=== PATIENT | male | born 1960 | race Caucasian/White ===

== ENCOUNTER 2020-06-05 00:23 | Outpatient (CLI) | payer BC, SELFPAY ==
[2020-06-05 20:04] LABS: SARS-CoV-2 RNA PCR Negative
== END 2020-06-05 00:24 | disposition home or self-care (01) ==
LOC: ANHCOVIDDT 00:24
PROVIDERS: PCP Internal Medicine; Visit Provider Internal Medicine Gastroenterology
DX: Z01.812 Encounter for preprocedural laboratory examination (principal); Z11.59 Encounter for screening for other viral diseases
CPT/HCPCS: 87635; C9803; U0003

== ENCOUNTER 2020-06-07 00:58 | Day surgery (SDC) | payer BC, SELFPAY ==
[2020-05-30 11:47] VITALS: BMI 27.5
--- NOTE | 2020-06-07 09:22 | P.PNAN_ITS ---
Anes - Initial Pre Proc Eval Procedure: Operation Date: 06/07/20 09:30 Proposed Procedures p Screening Colonoscopy - Checo Zaragoza MD Date/Time: 06/07/20 09:22 Surgeon: Checo Zaragoza MD Pre Op Diagnosis: Neoplasm Screening Patient Data Age: 59 Gender: M Height: 6 ft 3 in Weight: 100 kg Allergies Allergy/AdvReac Type Severity Reaction Status Date / Time No Known Allergies Allergy Verified 06/07/20 09:15 Home Medications Medication Instructions Recorded Confirmed Type No Home Medications 05/30/20 06/07/20 History Patient hx anesthesia problems: none Family hx anesthesia problems: none [facility] Past Medical History Medical History (Updated 06/07/20 @ 09:17 by Frank Nguyen MD) Healthy adult Social History Social History Years smoked: 10 Smoking status: Current some day smoker Tobacco type: cigars Alcohol intake: current Drinks per week: 12 Substance use: never Living arrangements: with family Spiritual care concerns: No Anes - Eval Final PreProcedure Day of Procedure 06/07/20 09:22 Patient weight: normal Heart: regular rate and rhythm Lungs: clear to auscultation Airway: Mallampati scale class II Neurological: alert and oriented Last oral intake: >/= 8 hours ASA classification: II Emergent: no Anesthetic plan: proceed Anesthesia type and monitoring: general GIVS and standard monitoring Informed Consent: The patient's anesthetic plan and its attendant risks and benefits were discussed with the patient/family/POA. Questions were solicited and answers provided to the satisfaction of the patient/family/POA.
[2020-06-07] MEDS: LACTATED RINGERS 1,000 ML 150 ML IV CONT (09:26)
[2020-06-07 09:28] VITALS: BP 148/95; PULSE 66; RESP 18; TEMP 36.5; O2SAT 100; BMI 27.3
--- NOTE | 2020-06-07 09:37 | P.CONGI_ITS ---
Assessment and Plan Assessment and plan (1) Encounter for screening colonoscopy: Code(s): Z12.11 - Encounter for screening for malignant neoplasm of colon Status: Acute Assessment and Plan: Patient has been in good health last colonoscopy 10 years ago was unremarkable. Plan is for screening colonoscopy at this time. GI Consult Note Consult date/time: 06/07/20 09:37 HPI: Param Oliveros is a 59 year old male seen in evaluation at the request of Dr Hyatt. Patient presents for neoplasia screening. His current weight appetite bowel movements are normal. He denies abdominal pain. On a fluid few instances is notice bright red blood per rectum with wiping. He states his last col onoscopy 10 years ago that was unremarkable. Family history is noncontributory. Patient currently has been in good health is on no medications. Review of Systems Review of Systems: All systems reviewed & are unremarkable except as noted in HPI and below PMFSH Past Medical History Medical History (Updated 06/07/20 @ 09:38 by Checo Zaragoza MD) Healthy adult Social History Social History Years smoked: 10 Smoking status: Current some day smoker Tobacco type: cigars Alcohol intake: current Drinks per week: 12 Substance use: never Living arrangements: with family Spiritual care concerns: No Meds Home Medications and Allergies Home Medications Medication Instructions Recorded Confirmed Type No Home Medications 05/30/20 06/07/20 History Allergies Allergy/AdvReac Type Severity Reaction Status Date / Time No Known Allergies Allergy Verified 06/07/20 09:15 Vital Signs Vital Signs - 24 hr 06/07/20 09:28 Temperature 97.7 F Pulse Rate 66 Respiratory Rate 18 Blood Pressure 148/95 H Pulse Oximetry 100 Exam Narrative: Exam Narrative: Physical exam reveals patient to be alert. Vital signs stable. HEENT exam unremarkable. Lungs are clear to auscultation and percussion. Heart is without murmur or extra sounds. Abdominal exam bowel sounds are present soft nontender with no hepatosplenomegaly. Digital rectal exam is normal.
[2020-06-07 10:13] VITALS: BP 134/91; PULSE 77; RESP 18; O2SAT 97
[2020-06-07 10:23] VITALS: BP 135/94; PULSE 65; RESP 18; O2SAT 98
[2020-06-07 10:33] VITALS: BP 130/93; PULSE 60; RESP 18; O2SAT 97
== END 2020-06-07 10:42 | disposition home or self-care (01) ==
PROVIDERS: PCP Internal Medicine; Visit Provider Internal Medicine Gastroenterology
PROC: 0DJD8ZZ Inspection of Lower Intestinal Tract, Via Natural or Artificial Opening Endoscopic (ICD-10-PCS; CPT 45378; principal; 2020-06-07 09:30)
DX: Z12.11 Encounter for screening for malignant neoplasm of colon (principal); D12.2 Benign neoplasm of ascending colon; D12.5 Benign neoplasm of sigmoid colon; K63.5 Polyp of colon; K57.30 Diverticulosis of large intestine without perforation or abscess without bleeding; K64.8 Other hemorrhoids; F17.290 Nicotine dependence, other tobacco product, uncomplicated
CPT/HCPCS: 45385; 88305; J2704; J7120

== ENCOUNTER 2021-02-25 08:12 | Outpatient (CLI) | payer BC, SELFPAY ==
--- NOTE | ~2021-02-25 | XR_ITS ---
EXAMINATION: XR chest 2V 02/25/2021 08:30 INDICATION: Cough PROCEDURE: 2 view chest COMPARISON: No prior studies for comparison. FINDINGS: The lungs are clear. The lungs are hyperinflated which is consistent with, but not diagnost ic of chronic obstructive pulmonary disease. The cardiomediastinal silhouette is within normal limits . There are no pleural effusions. There is no pneumothorax suspected. IMPRESSION: 1: NO ACUTE CARDIOPULMONARY DISEASE. Reviewed, dictated and finalized at location A.
== END 2021-02-25 08:13 | disposition home or self-care (01) ==
LOC: CHSIMG 08:15
PROVIDERS: PCP Internal Medicine; Visit Provider Internal Medicine
DX: R05 Cough (principal)
CPT/HCPCS: 71046

== ENCOUNTER 2021-04-11 07:57 | Outpatient (CLI) | payer BC, SELFPAY ==
--- NOTE | ~2021-04-11 | CT_ITS ---
EXAMINATION: CT lung screening DATE: 04/11/2021 08:13 INDICATION: Personal history of tobacco dependence TECHNIQUE: Computed tomography (CT) of the chest was performed without intravenous contrast. The dose -length product was 179.30 mGy-cm. Automated exposure control and iterative reconstruction technique were employed. COMPARISON: Chest x-ray dated 02/25/2021 FINDINGS: Mildly enlarged AP window lymph node measuring 12 mm short axis. Heart size normal. Mild at herosclerosis of the aorta and coronary arteries. No significant pleural or pericardial effusion. Fat ty infiltration of the liver. There are innumerable miliary nodules measuring 2 mm or less, primarily centrilobular. No endobronchial lesions. IMPRESSION: 1. Lung-RADS category 2: Benign appearance or behavior. Continue annual screening with noncontrast lo w-dose chest CT in 12 months. 2: Miliary nodules throughout both lungs, likely infectious/inflammatory. Reviewed, dictated and finalized at location A. IMPRESSION: 1. Lung-RADS category 2: Benign appearance or behavior. Continue annual screeni ng with noncontrast low-dose chest CT in 12 months. 2: Miliary nodules throughout both lungs, likely infectious/inflammatory.
== END 2021-04-11 07:58 | disposition home or self-care (01) ==
LOC: CHSIMG 07:58
PROVIDERS: PCP Internal Medicine; Visit Provider Internal Medicine
DX: Z12.2 Encounter for screening for malignant neoplasm of respiratory organs (principal); Z87.891 Personal history of nicotine dependence
CPT/HCPCS: 71271

== ENCOUNTER 2021-04-16 08:58 | Outpatient (CLI) | payer BC, SELFPAY | END 2021-04-16 08:59 | disposition home or self-care (01) | LOC: CHSCARD 08:59 | PROVIDERS: PCP Internal Medicine; Visit Provider Internal Medicine | DX: R93.89 Abnormal findings on diagnostic imaging of other specified body structures (principal) | CPT/HCPCS: 94060; 94726; 94729 ==

== ENCOUNTER 2021-05-10 09:48 | Outpatient (CLI) | payer BC, SELFPAY ==
--- NOTE | ~2021-05-10 | US_ITS ---
EXAMINATION: US right upper quadrant EXAM DATE: 05/10/2021 10:16 INDICATION: Elevated liver enzymes TECHNIQUE: Multiple grayscale and Doppler images of the abdomen right upper quadrant were obtained (b y a technologist who performed the scan) and subsequently reviewed. There is no prior study for heidi chawla. FINDINGS: The pancreatic head and body are normal in appearance. The pancreatic tail is not visualized. There is echogenic liver parenchyma, hepatic steatosis. There are no focal liver lesions identified. Th ere is no evidence of intrahepatic biliary duct dilation. Portal venous flow was seen in the hepatop edal, normal direction and has normal Doppler waveform. No right-sided hydronephrosis. Common bile duct measures 5 mm, which is normal. The gallbladder wall is normal in thickness, with ex pected amount of distention. No sonographic evidence of pericholecystic fluid. There is no cholelit hiases. Technologist performing exam reports patient did not demonstrate sonographic Steinberg's sign. Please note that this sign is less reliable in patients who have received pain medication. IMPRESSION: 1. Hepatic steatosis. Reviewed, dictated and finalized at location A. IMPRESSION: 1. Hepatic steatosis.
== END 2021-05-10 09:49 | disposition home or self-care (01) ==
LOC: CHSIMG 09:50
PROVIDERS: PCP Internal Medicine; Visit Provider Internal Medicine
DX: R94.5 Abnormal results of liver function studies (principal)
CPT/HCPCS: 76705

== ENCOUNTER 2022-01-09 07:21 | Outpatient (CLI) | payer BC, SELFPAY ==
--- NOTE | ~2022-01-09 | CT_ITS ---
EXAMINATION: CT diagnostic chest wo con DATE: 01/09/2022 08:53 INDICATION: Pulmonary nodules TECHNIQUE: Computed tomography (CT) of the chest was performed without intravenous contrast. The dose -length product (DLP) was 148.58 mGy-cm. Automated exposure control and iterative reconstruction tech Hubbubque were employed. COMPARISON: 04/11/2021 FINDINGS: There are innumerable 1 to 2 mm nodules scattered throughout the lungs. There is a stable 5 mm subpleural nodule of the left lower lobe. The lungs are free of focal airspace opacities. There i s no pleural effusion or pneumothorax. No pathologically enlarged thoracic lymph nodes are identified . The heart size is normal. Calcified coronary artery atherosclerosis is noted. The liver is diffusel y low in attenuation when compared with the spleen, consistent with hepatic steatosis. There is mild thoracic spondylosis. IMPRESSION: 1. Unchanged widespread miliary nodules throughout the lungs, most likely infectious/inflammatory. 2. Stable 5 mm nodule of the left lower lobe. Reviewed, dictated and finalized at location F. IMPRESSION: 1. Unchanged widespread miliary nodules throughout the lungs, most likely infec tious/inflammatory. 2. Stable 5 mm nodule of the left lower lobe.
== END 2022-01-09 07:22 | disposition home or self-care (01) ==
LOC: CHSIMG 07:22
PROVIDERS: PCP Internal Medicine; Visit Provider Internal Medicine
DX: R91.1 Solitary pulmonary nodule (principal)
CPT/HCPCS: 71250

== ENCOUNTER 2023-04-15 08:28 | Outpatient (CLI) | payer BC, SELFPAY ==
--- NOTE | ~2023-04-15 | CT_ITS ---
EXAMINATION:CT diagnostic chest wo con DATE: 04/15/2023 09:04 INDICATION: Pulmonary nodule. TECHNIQUE: Computed tomography (CT) of the chest was performed without intravenous contrast. Automate d exposure control and iterative reconstruction technique were employed. The dose-length product (DLP ) was 601.23 mGy-cm. COMPARISON: Chest CT 01/09/2022, 04/11/21 FINDINGS: There are innumerable 1-2 mm nodules in the lungs. There are a few larger nodules in the rafaela ngs measuring up to 5 mm in left lower lobe. These findings are stable from 04/11/21. No pleural effus ion. The heart size is normal. There are coronary artery calcifications. No pericardial effusion. The re is diffuse hepatic steatosis. Again seen is a mildly enlarged mediastinal lymph node, likely react ajay. There is severe cervical spondylosis and mild thoracic spondylosis. IMPRESSION: 1. Lung-RADS category 2: Benign appearance or behavior. Continue annual screening with noncontrast lo w-dose chest CT in 12 months. Reviewed, dictated and finalized at location B. IMPRESSION: 1. Lung-RADS category 2: Benign appearance or behavior. Continue annual screeni ng with noncontrast low-dose chest CT in 12 months.
--- NOTE | ~2023-04-15 | US_ITS ---
EXAMINATION: US aorta DATE: 04/15/2023 08:58 INDICATION: Dominant aortic aneurysm screening TECHNIQUE: Grayscale, color Doppler, and pulsed Doppler images of the aorta and common iliac arteries were obtained. COMPARISON: None. FINDINGS: The proximal aorta measures 2.4 cm. The mid aorta measures 2.4 cm. The distal aorta measures 2.3 cm. The right common iliac artery measures 1.4 cm. The left common iliac artery measures 1.6 cm. IMPRESSION: 1. Normal caliber abdominal aorta Reviewed, dictated and finalized at location A.
== END 2023-04-15 08:29 | disposition home or self-care (01) ==
LOC: CHSIMG 08:34
PROVIDERS: PCP Internal Medicine; Visit Provider Internal Medicine
DX: R91.1 Solitary pulmonary nodule (principal)
CPT/HCPCS: 71250; 76775

== ENCOUNTER 2024-07-13 10:09 | Outpatient (CLI) | payer MEDICARE, SELFPAY ==
--- NOTE | ~2024-07-13 | CT_ITS ---
CT Scan of the Chest without Contrast: Clinical Indication: Pulmonary nodule Technique: Contiguous sections were acquired throughout the chest without intravenous contrast. Dose reduction technique was used on this scan by utilizing automated exposure control and iterative recon struction technique. The dose-length product (DLP) was 173.71 mGy-cm. COMPARISON: 04/15/2023 Findings: There is no evidence of any significant mediastinal, hilar or axillary lymphadenopathy. The mediastin al soft tissues appear normal. There is no evidence of pleural or pericardial effusion. There is extensive mild ground glass opacity, new from prior exam. There are probable minimal tree-in -bud and/or reticulonodular opacities throughout the lungs, similar to prior exam. Images through the upper abdomen reveal no abnormalities. Impression: Extensive tree-in-bud/reticular nodular opacities, similar to prior exam. Extensive mild groundglass opacity, with broad differential diagnosis, including possible superimpose d bronchiolitis, hypoventilatory change, asthma, hypersensitivity pneumonitis, drug reaction, or mini mal pulmonary edema. Correlate clinically. Reviewed, dictated and finalized at [facility]. Impression: Extensive tree-in-bud/reticular nodular opacities, similar to prior exam. Extensive mild groundglass opacity, with broad differential diagnosis, includin g possible superimposed bronchiolitis, hypoventilatory change, asthma, hypersen sitivity pneumonitis, drug reaction, or minimal pulmonary edema. Correlate clin ically.
== END 2024-07-13 10:10 | disposition home or self-care (01) ==
PROVIDERS: PCP Internal Medicine; Visit Provider Internal Medicine
DX: R91.1 Solitary pulmonary nodule (principal); R91.8 Other nonspecific abnormal finding of lung field
CPT/HCPCS: 71250

== ENCOUNTER 2024-10-13 09:07 | Outpatient (CLI) | payer MEDICARE, SELFPAY ==
--- OUTSIDE RECORDS SUMMARY | 2024-10-13 09:36 | XMS_ITS | Referral Summary ---
Author Organization [facility] Address [address] [place] [address] Care Team Providers Care Exhaust Worker Name Role Phone Unavailable Primary Care Provider Unavailabl e Source Comments [facility],non-owned Affiliates and Associated Physician Practices is amultiple site organization consisting of ambulatory clinics and hospital sitesin [place], [place], [place] and [place]. This disclosure is being madepursuant to the Care Everywhere program and may not contain all information available regarding this patient. Last updated 18.[facility] Encounters Date Type Department Care Team Description 09/30/2024 Telephone [facility] GI [address] [place] [address] Luz Smith Procedure (External Referral, Colonoscopy+/-EMR, Dr. Voss) from Last 3 Months Social History Tobacco Use Types Packs/Day Years Used Date Smoking Tobacco: Never Assessed Sex and Gender Information Value Date Recorded Sex Assigned at Not on file Gender Identity Not on file Sexual Orientation Not on file Plan of Treatment Upcoming Encounters Date Type Department Care Team (Latest Contact Info) Description 11/11/2024 12:00 PM GAS APPLIANCE INSTALLER Hospital Encounter [facility] ENDOSCOPY [address] [place] [phone] Todd Kramer MD [address] [place] [phone] Surgery General 11/11/2024 12:00 PM GAS APPLIANCE INSTALLER - 11/11/2024 1:00 PM GAS APPLIANCE INSTALLER Surgery [facility] ENDOSCOPY [address] [place] [phone] Todd Kramer MD [address] [place] [address] COLONOSCOPY+/-EMR Scheduled Procedures Name Priority Associated Diagnoses Date/Ti me COLONOSCOPY DIAGNOSTIC History of colon polyps 11/11/2024 12:00 PM GAS APPLIANCE INSTALLER Param Oliveros Personal/Family Self 1960 [address] [place] [address]
--- OUTSIDE RECORDS SUMMARY | 2024-10-13 09:36 | XMS_ITS | Clinical Summary ---
Author Organization [facility] Address [address] [place] [address] Care Team Providers Care Hearing Aid Repairer Name Role Phone Unavailable Primary Care Provider Unavailabl e Source Comments [facility],non-owned Affiliates and Associated Physician Practices is amultiple site organization consisting of ambulatory clinics and hospital sitesin [place], [place], [place] and [place]. This disclosure is being madepursuant to the Care Everywhere program and may not contain all information available regarding this patient. Last updated 18.[facility] Encounters Date Type Department Care Team Description 09/30/2024 Telephone [facility] GI [address] [place] [address] Luz Smith Procedure (External Referral, Colonoscopy+/-EMR, Dr. [...] (Latest Contact Info) Description 11/11/2024 12:00 PM ELECTRICAL ENGINEERING DESIGNER Hospital Encounter [facility] ENDOSCOPY [address] [place] [phone] Todd Kramer MD [address] [place] [phone] Surgery General 11/11/2024 12:00 PM ELECTRICAL ENGINEERING DESIGNER - 11/11/2024 1:00 PM ELECTRICAL ENGINEERING DESIGNER Surgery [facility] ENDOSCOPY [address] [place] [phone] Todd Kramer MD [address] [address] COLONOSCOPY+/-EMR Scheduled Procedures Name Priority Associated Diagnoses Date/Ti me COLONOSCOPY DIAGNOSTIC History of colon polyps 11/11/2024 12:00 PM ELECTRICAL ENGINEERING DESIGNER Health Maintenance Due Date Last Done Comments COLOGUARD (AGES 45-75) - COL ON CA SCREENING 1960 COLON MONITORING 1959 COLONOSCOPY - COLON CA SCREENING 1959 CT COLONOGRAPHY - COLON CA SCREENING 1960 Colorectal Cancer Screening 1960 FIT - COLON CA SCREENING 1959 FLEX SIG - COLON CA SCREENING 1959 LIPID TESTING 1959 HIV SCREENING 1974 HEPATITIS C SCREENING 06/26/1977 DTAP/TDAP/TD VACCINES (1 - Tdap) 1978 PNEUMOCOCCAL VACCINE 50+ (1 of 1 - PCV) 2009 ZOSTER VACCINE (1 of 2) 2009 COVID-19 VACCINE (1 - 2023-2 5 season) 2024 INFLUENZA VACCINE (#1) 2024 DEPRESSION SCREENING 09/14/2024 MEDICARE AWV ? CALENDAR YEAR 2024 Respiratory Syncytial Virus (RSV) Vaccine Pt: or over 60 yrs (1 - 1-dose 75+ series) 2034 HEPATITIS B VACCINE Aged Out No longe r eligible based on patient's age to complete this topic HIB VACCINE Aged Out No longer eligi ble based on patient's age to complete this topic HPV VACCINE Aged Out No longer eligi ble based on patient's age to complete this topic MENINGOCOCCAL (Group B) VACCINE Aged Out No longer eligible based on patient's age to complete this topic MENINGOCOCCAL VACCINE Aged Out No tito jasper eligible based on patient's age to complete this topic Param Oliveros Personal/Family Self 1960 [address] [place] [id number]
--- OUTSIDE RECORDS SUMMARY | 2024-10-13 09:36 | XMS_ITS | CONTINUITY OF CARE DOCUMENT ---
Author Name brayden owen Address Unknown Organization [facility] Address [address] [place] [address] Phone [phone] Care Team Providers Care Community Health Program Coordinator Name Role Phone Donnie SMITH, Mariam Unavailable GIRMA SMITH, CHARI Kong Unavailable INSURANCE PROVIDERS Payer name Policy type / Coverage type [place] red republican ID [employer] [facility] Workers' compensation health [facility] [id number]
--- OUTSIDE RECORDS SUMMARY | 2024-10-13 09:36 | XMS_ITS | Patient Health Summary ---
Author Organization [facility] Address [address] [place] [address] Care Team Providers Care Software Project Engineer Name Role Phone Unavailable Primary Care Provider Unavailabl e Note from [facility],non-owned Affiliates and Associated Physician Practices is amultiple site organization consisting of ambulatory clinics and hospital sitesin [place], [place], [place] and [place]. This disclosure is being madepursuant to the Care Everywhere program and may not contain all information available regarding this patient. Last updated 18.[facility] Social History Tobacco Use Types Packs/Day Years Used Date Smoking Tobacco: Never Assessed Sex and Gender Information Value Date Recorded Sex Assigned at Not on file Gender Identity Not on file Sexual Orientation Not on file
[2024-10-13 09:49] LABS: Basophils Absolute Auto 0.1 K/mm3 (0.0-0.1); Basophils Percent Auto 1.3 % (0.2-1.2); Eosinophils Absolute Auto 0.4 K/mm3 (0-0.3); Eosinophils Percent Auto 4.6 % (0-4.4); Hematocrit 46.9 % (42.0-52.0); Hemoglobin 16.4 g/dL (14.0-18.0); Immature Granulocyte Absolute 0.07 K/mm3 (0.00-0.031); Immature Granulocyte Percent A 0.8 % (0-0.5); Lymphocytes Absolute Auto 2.22 K/mm3 (0.9-3.2); Lymphocytes Percent Auto 25.5 % (18.3-44.2); Mean Corpuscular Volume 100.2 fl (80-100); Mean Platelet Volume 9.4 fl (7.4-10.4); Monocytes Absolute Auto 0.6 K/mm3 (0.1-0.6); Monocytes Percent Auto 6.7 % (2.6-8.5); Neutrophils Absolute Auto 5.3 K/mm3 (1.3-6.7); Neutrophils Percent Auto 61.1 % (45.5-73.1); Platelet Count Result 210 k/mm3 (150-375); Red Blood Count 4.68 M/mm3 (4.6-6.20); Red Cell Distribution Width 12.1 % (11.5-14.5); White Blood Count 8.7 K/mm3 (4.5-10.0)
[2024-10-13 10:45] LABS: Erythrocyte Sedimentation Rate 16 mm/hr (0-20)
[2024-10-13 11:15] LABS: CRP 0.8 mg/dL (<1.0); Creatine Kinase 45 U/L (55-170); Rheumatoid Factor 12.7 IU/ML (<12)
--- NOTE | 2024-10-14 07:25 | WPDSIXMINUTE ---
Six Minute Walk Procedure Procedure Performed Pulmonary Stress Test (6 min walk) Six Minute Walk Six Minute Walk: This is a 6 minute walk test. The test was performed and interpreted in accordance with the 2014 ERS/ATS task force guidelines. Findings: The patient's resting room air oxygen saturation measured by pulse oximetry was 95%, the heart rate was 110 bpm, and the modified Clayton dyspnea score was 0. Patient ambulated for 579 meters and oxygen saturation remained 95 to 96%. At the end of the study the heart rate was 123 bpm and the modified Clayton dyspnea score was 1. The patient did not qualify for supplemental oxygen at rest or with ambulation. There are no prior studies for comparison.
--- NOTE | 2024-10-14 07:26 | WPDPFTINT ---
PFT Procedure Performed PFT Procedure Performed Spirometry with Pre/Post Bronchodilator Plethysmography (Lung Vol) Diffusing Cap (DLCO) Flow Vol Loop PFT Interpretation This is a pulmonary function test with pre and post-bronchodilator spirometry, plethysmography and diffusing capacity. The test was performed and results interpreted in accordance with the 2019 and 2005 ATS/ERS Task Force guidelines respectively using the Global Lung Function Initiative-2012 reference equations. Patient demonstrated good effort and cooperation. Reproducibility criteria were met. The quality of the pre bronchodilator spirometry maneuver was Grade A and post bronchodilator spirometry maneuver was Grade A. Findings: Spirometry: The contour the inspiratory and expiratory flow tracing are normal. The pre bronchodilator FVC is 5.34 L, 105% predicted. The pre bronchodilator FEV1 is 3.76 L, 98% predicted. The pre bronchodilator FEV1: FVC ratio is 70%. The post bronchodilator FVC is 5.39 L, representing a 1% increase. The post bronchodilator FEV1 is 4.00 L, representing a 6% increase. The post bronchodilator FEV1: FVC ratio is 74%. Plethysmography: The total lung capacity is 8.17 L, 104% predicted. The functional residual capacity is 3.66 L, 88% predicted. The residual volume is 2.82 L, 110% predicted. Diffusing capacity: The diffusing capacity unadjusted for hemoglobin and carboxyhemoglobin is 27.8, 96% predicted. The diffusing capacity adjusted for alveolar volume is 3.84, 100% predicted. Impression: The spirometry is normal without evidence of an obstructive abnormality. There is no significant improvement after inhaling a single dose of albuterol. The lung volumes are normal. The diffusing capacity is normal. There are no prior studies for comparison
[2024-10-15 13:07] LABS: NIL 0.02 IU/mL; Quantiferon TB Plus, 1T NEGATIVE (NEGATIVE); TB1-NIL 0.01 IU/mL; TB2-NIL 0.01 IU/mL
[2024-10-15 16:37] LABS: ANCA Screen NEGATIVE (NEGATIVE)
[2024-10-17 14:54] LABS: Aldolase 7.6 U/L (< OR = 8.1)
[2024-10-18 15:13] LABS: Anti Cyclic Citrullinated Pept <16 UNITS
[2024-10-18 15:37] LABS: JO-1 AB <11 SI (<11); MI-2 Alpha Ab <11 SI (<11); MI-2 Beta Ab <11 SI (<11); NXP-2 AB <11 SI (<11); TIF1 Gamma Ab <11 SI (<11)
== END 2024-10-13 09:08 | disposition home or self-care (01) ==
PROVIDERS: PCP Internal Medicine; Visit Provider Internal Medicine Pulmonary Disease
DX: R93.89 Abnormal findings on diagnostic imaging of other specified body structures (principal); J84.9 Interstitial pulmonary disease, unspecified; R91.1 Solitary pulmonary nodule; J98.4 Other disorders of lung; J44.9 Chronic obstructive pulmonary disease, unspecified
CPT/HCPCS: 36415; 82085; 82550; 84182; 85025; 85652; 86036; 86140; 86200; 86430; 86480; 94060; 94618; 94726; 94729

== ENCOUNTER 2025-01-11 09:53 | Outpatient (CLI) | payer MEDICARE, SELFPAY ==
--- NOTE | ~2025-01-11 | CT_ITS ---
CT Scan of the Chest without Contrast: Clinical Indication: Follow-up of prior abnormal CT scan Technique: Contiguous sections were acquired throughout the chest without intravenous contrast. Dose reduction technique was used on this scan by utilizing automated exposure control and iterative recon struction technique. The dose-length product (DLP) was 435.76 mGy-cm. COMPARISON: 07/13/2024 Findings: There is no evidence of any significant mediastinal, hilar or axillary lymphadenopathy. The mediastin al soft tissues appear normal. There is no evidence of pleural or pericardial effusion. Diffuse tree-in-bud and/or centrilobular nodules are overall similar to prior exam. A few slightly la rger left basilar pulmonary nodules are unchanged. Images through the upper abdomen reveal no abnormalities. Impression: Diffuse tree-in-bud/centrilobular nodules are similar to prior exam, compatible with small airways in fectious process. A few slightly larger left basilar pulmonary nodules are also unchanged. Reviewed, dictated and finalized at location . Impression: Diffuse tree-in-bud/centrilobular nodules are similar to prior exam, compatible with small airways infectious process. A few slightly larger left basilar pulmonary nodules are also unchanged.
--- OUTSIDE RECORDS SUMMARY | 2025-01-11 10:53 | XMS_ITS | CONTINUITY OF CARE DOCUMENT ---
Author Name brayden owen Address Unknown Organization [facility] Address [address] [place] [address] Phone [phone] Care Team Providers Care Implementation Lead Name Role Phone Donnie SMITH, Mariam Unavailable [phone] GIRMA SMITH, CHARI Kong Unavailable [phone] INSURANCE PROVIDERS Payer name Policy type / Coverage type [place] red constitution party ID [employer] [facility] Workers' compensation health [facility] [id number]
--- OUTSIDE RECORDS SUMMARY | 2025-01-11 10:53 | XMS_ITS | Clinical Summary ---
Author Organization [facility] Address [address] [place] [address] Care Team Providers Care Inspector Welded Parts Name Role Phone Saleem Rios MD Primary Care Provider [phone] Source Comments [facility],non-owned Affiliates and Associated Physician Practices is amultiple site organization consisting of ambulatory clinics and hospital sitesin [place], [place], [place] and [place]. This disclosure is being madepursuant to the Care Everywhere program and may not contain all information available regarding this patient. Last updated 18.[facility] Allergies No known active allergies Medications * Be aware that medications may not be up to date on this document. Alwaysverify current medications with the patient. cyanocobalamin (Vitamin B-12) 1000 MCG tablet Take 1 (one) tablet by mouth once daily Active Encounters Date Type Department Care Team Description 11/11/2024 12:00 PM J2EE APPLICATION DEVELOPER - 11/11/2024 1:00 PM J2EE APPLICATION DEVELOPER Surgery [facility] [address] [place] [address] Todd Kramer MD COLONOSCOPY+/-EMR 11/11/2024 11:44 AM J2EE APPLICATION DEVELOPER Anesthesia Event [facility] [address] [place] [address] Abby Chavez MD Mette, Katherine A, ROUTE DRIVER COIN MACHINES-SUPERVISOR WORD PROCESSING 11/11/2024 10:42 AM J2EE APPLICATION DEVELOPER - 11/11/2024 1:25 PM J2EE APPLICATION DEVELOPER Hospital Encounter [facility] [address] [place] [address] Todd Kramer MD Surgery General Discharge Disposition: Home or Self Care 11/11/2024 Travel 11/03/2024 Telephone [facility] GI [address] [facility] [place] [address] Willard Nugent RN Appointment (procedure to confirm) from Last 3 Months Social History Tobacco Use Types Packs/Day Years Used Date Smoking Tobacco: Never Smokeless Tobacco: Never Tobacco Cessation:Counseling Given: Not Answered Alcohol Use Standard Drinks/Week Comments Yes 0 (1 standard drink = 0.6 oz pur e alcohol) 10 beers a day Sex and Gender Information Value Date Recorded Sex Assigned at Not on file Legal Sex Male 9:29 AM CDT Gender Identity Not on file Sexual Orientation Not on file Last Filed Vital Signs Vital Sign Reading Time Taken Comments Blood Pressure 154/101 11/11/2024 1:16 PM J2EE APPLICATION DEVELOPER Pulse 67 11/11/2024 1:16 PM J2EE APPLICATION DEVELOPER Temperature 36.2 C (97.2 F) 11/11/2024 12:46 PM J2EE APPLICATION DEVELOPER Respiratory Rate 17 11/11/2024 1:16 PM J2EE APPLICATION DEVELOPER Oxygen Saturation 96% 11/11/2024 1:16 PM J2EE APPLICATION DEVELOPER Inhaled Oxygen Concentration - - Weight 111.6 kg (246 lb) 11/11/2024 11:15 AM J2EE APPLICATION DEVELOPER Height 188 cm (6' 2 ) 11/11/2024 11:15 AM J2EE APPLICATION DEVELOPER Body Mass Index 31.58 11/11/2024 11:15 AM J2EE APPLICATION DEVELOPER Plan of Treatment Health Maintenance Due Date Last Done Comments COLOGUARD (AGES 45-75) - COL ON CA SCREENING 1960 CT COLONOGRAPHY - COLON CA SCREENING 1960 FIT - COLON CA SCREENING 1960 FLEX SIG - COLON CA SCREENING 1960 LIPID TESTING 1960 HIV SCREENING 1974 HEPATITIS C SCREENING 06/26/1977 DTAP/TDAP/TD VACCINES (1 - Tdap) 1978 PNEUMOCOCCAL VACCINE 50+ (1 of 1 - PCV) 2009 ZOSTER VACCINE (1 of 2) 2009 COVID-19 VACCINE (1 - 2024-2 5 season) 2024 DEPRESSION SCREENING 09/14/2024 MEDICARE AWV CALENDAR YEAR 2024 INFLUENZA VACCINE (Season Ended) 2025 Respiratory Syncytial Virus (RSV) Vaccine Pt: or over 60 yrs (1 - 1-dose 75+ series) 2034 COLON MONITORING 11/11/2034 11/11/2024, 11/11/2024 COLONOSCOPY - COLON CA SCREENING 11/11/2034 11/11/2024, 11/11/2024 Colorectal Cancer Screening 11/11/2034 HEPATITIS B VACCINE Aged Out No longe r eligible based on patient's age to complete this topic HIB VACCINE Aged Out No longer eligi ble based on patient's age to complete this topic HPV VACCINE Aged Out No longer eligi ble based on patient's age to complete this topic MENINGOCOCCAL (Group B) VACCINE SHARED DECISION-MAKING Aged Out No longer eligible based on patient's age to complete this topic MENINGOCOCCAL GROUPS A/C/Y/W VACCINE Aged Out No longer eligible b ased on patient's age to complete this topic Procedures Procedure Name Priority Date/Time Associated Diagnosis Comments PATHOLOGY TISSUE Routine 11/11/2024 12:0 1 PM J2EE APPLICATION DEVELOPER History of colon polyps [place] COLONOSCOPY, DIAGNOSTIC 11/11/2024 11:40 AM J2EE APPLICATION DEVELOPER History of colon polyps ENDOSCOPY, COLON, DIAGNOSTIC Routine 11/11/2024 11:26 AM J2EE APPLICATION DEVELOPER from Last 3 Months Results * PATHOLOGY TISSUE (11/11/2024 12:01 PM J2EE APPLICATION DEVELOPER) Case Report Surgical Pathology Report Case: [id number] Authorizing Provider: Todd Kramer, Collected: 11/11/2024 12:01 PM Ordering Location: [facility] Received: 11/11/2024 01:25 PM Pathologist: Isaura Meza MD Specimens: A) - Polyp Cecum, cecal polyp x1 B) - Polyp Ascending, ascending colon polyps x5 C) - Polyp Ascending, ascending colon polyp EMR 11/14/2024 2:05 PM J2EE APPLICATION DEVELOPER [facility] Final Diagnosis Large intestine, cecal polyp x 1, biopsy (A): - Serrated lesion Large intestine, ascending colon polyps x 5, biopsy (B): - Tubular adenoma - Sessile serrated lesion(s)/adenoma(s), fragmented Large intestine, ascending colon polyp EMR, polypectomy (C): - Sessile serrated lesion/adenoma, fragmented 11/14/2024 2:05 PM [facility] Microscopic Description and Comment Microscopic examination substantiates the final diagnosis. 11/14/2024 2:05 PM [facility] Clinical History The patient is a 64-year-old man who presents for therapeutic procedure for colon polyps. Operative procedure/findings: Colonoscopy - 4 mm cecal polyp, snare resected and retrieved; five 3-4 mm ascending colon polyps, snare resected and retrieved; 25 mm Alpa Is+ IIa granular laterally spreading polyp in the distal ascending colon, piecemeal endomucosal resection 11/14/2024 2:05 PM [facility] Gross Description The requisition and specimen(s) are identified with the patient's name, Radha Wilkins. Received in formalin, specimen A , is one zhao-white and glistening segment of soft tissue measuring 0.4 x 0.3 x 0.2 cm, submitted in toto as cassette A1. Received in formalin, specimen B are multiple pink-zhao, glistening and focally hemorrhagic soft tissue fragments, ranging from 0.3 to 0.8 cm and measuring 1.5 x 1.3 x 0.4 cm in aggregate, submitted in toto as cassette B1. Received in formalin, specimen C are multiple pink-zhao and glistening soft tissue fragments, ranging from 0.1 to 1.2 cm and measuring 2.0 x 1.8 x 0.6 cm in aggregate, submitted in toto as cassette C1-C2. AL 11/14/2024 2:05 PM [facility] Pathologist Location at [facility] 11/14/2024 2:05 PM [facility] Disclaimer The performance characteristics of all immunohistochemical and indirect immunofluorescence stains (if any) cited in this report were determined by the Histopathology Laboratory of [facility]. Some of these tests were developed by our own laboratory and have not been cleared or approved by the US Food and Drug Administration. The FDA does not require this test to go through premarket FDA review. These tests are used for clinical purposes. They should not be regarded as investigational or for research. This laboratory is certified under the Clinical Laboratory Improvement Amendments (CLIA) as qualified to perform high complexity clinical laboratory testing. This case has been personally reviewed and interpreted by the attending (teaching) pathologist. 11/14/2024 2:05 PM [facility] Embedded Images 11/14/2024 2:05 PM J2EE APPLICATION DEVELOPER [facility] Biopsy, NOS POLYP OF CECUM / Unknown 11/11/2024 12:01 PM J2EE APPLICATION DEVELOPER 11/11/2024 1:25 PM J2EE APPLICATION DEVELOPER Comment:Pre-op diagnosis: History of colon polyps [Z86.0100] Biopsy, NOS POLYP / Unknown 11/11/2024 1 2:03 PM J2EE APPLICATION DEVELOPER 11/11/2024 1:25 PM J2EE APPLICATION DEVELOPER Comment:Pre-op diagnosis: History of colon polyps [Z86.0100] Biopsy, NOS POLYP / Unknown 11/11/2024 1 2:12 PM J2EE APPLICATION DEVELOPER 11/11/2024 1:25 PM J2EE APPLICATION DEVELOPER Comment:Pre-op diagnosis: History of colon polyps [Z86.0100] Todd Sal MD LAB - PATHOLOGY/CYTO LOGY ORDERABLES Final Result [facility] [address] [place] [address], [facility] [phone] * Endoscopy, Colon, Diagnostic (11/11/2024 11:26 AM J2EE APPLICATION DEVELOPER) Report Endoscopy POC Endoscopy Department Report _ Patient Name: Radha Wilkins Procedure Date: 11/11/2024 11:26 AM Date of : 1960 Classification: Outpatient Gender: Male Ethnicity: Unknown Race: White _ Providers: Todd Sal MD Referring MD: Bill Voss MD Procedure: Colonoscopy Indications: Therapeutic procedure for colon polyps Medications: Monitored Anesthesia Care. See the Anesthesia note for documentation of the administered medications. Patient Profile: 64M presents as direct access referral for colonoscopy w/ polypectomy / EMR of large colon polyp. Recent exam 09/2024: 12 mm cecal polyp removed (TA), 25 mm polyp in distal ascending colon (tattooed), subcm TVC polyp removed (lymphoid aggregate), subcm rectal polyp removed (TVA). Description of Procedure: After I obtained informed consent, the scope was passed under direct vision. Throughout the procedure, the patient's blood pressure, pulse, and oxygen saturations were monitored continuously. The colonoscope was introduced through the anus and advanced to the cecum, identified by appendiceal orifice and ileocecal valve. The colonoscopy was performed without difficulty. The patient tolerated the procedure well. The quality of the bowel preparation was evaluated using the BBPS ([place] Bowel Preparation Scale) with scores of: Right Colon = 3 (entire mucosa seen well with no residual staining, small fragments of stool or opaque liquid), Transverse Colon = 3 (entire mucosa seen well with no residual staining, small fragments of stool or opaque liquid) and Left Colon = 3 (entire mucosa seen well with no residual staining, small fragments of stool or opaque liquid). The total BBPS score equals 6. The quality of the bowel preparation was fair. Findings: A 4 mm polyp was found in the cecum. The polyp was sessile. The polyp was removed with a cold snare. Resection and retrieval were complete. Five sessile polyps were found in the ascending colon. The polyps were 3 to 4 mm in size. These polyps were removed with a cold snare. Resection and retrieval were complete. A 25 mm polyp was found in the distal ascending colon, adjacent to a previous tattoo site. The polyp was Alpa classification Is + IIa, and granular laterally spreading. Preparations were made for mucosal resection. Eleview was injected into the submucosal space to raise the lesion. Piecemeal mucosal resection using a snare was performed. Resection and retrieval were complete. Resected tissue margins were examined and clear of polyp tissue. To prevent bleeding after the polypectomy, one hemostatic clip was successfully placed (DuraClip, MR conditional). There was no bleeding at the end of the procedure. Scattered small and large-mouthed diverticula were found in the sigmoid colon. Only limited exam was performed from the remainder of the colon due to suboptimal bowel preparation quality and need for large specimen retrieval. Estimated Blood Loss: Estimated blood loss was minimal. Complications: No immediate complications. Impression: - One 4 mm polyp in the cecum, removed with a cold snare. Resected and retrieved. - Five 3 to 4 mm polyps in the ascending colon, removed with a cold snare. Resected and retrieved. - One 25 mm Alpa Is + IIa granular laterally spreading polyp in the distal ascending colon, adjacent to a previous tattoo site, removed via piecemeal EMR, followed by prophylactic clip placement (DuraClip, MR conditional). - Left sided diverticulosis. - Only limited exam performed from the remainder of the colon due to suboptimal bowel preparation quality and need for large specimen retrieval. Moderate Sedation: . Recommendation: - Monitor for fevers, bleeding, pain. - Resume previous diet as tolerated. - Hold any anticoagulant medications ( blood thinners ) for 2 days. Resume rest of home medications today. - Follow-up pathology / biopsy results. Further management accordingly. - Plan for repeat Colonoscopy in 6 months with an extended split dose bowel preparation at the time. - Follow-up with primary care / referring providers. - Early colorectal cancer screening of first degree relatives via Colonoscopy. - The potential complications and concerning symptoms/findings, including but not limited to early or delayed fevers, infection, pain, bleeding, perforation, were discussed with the patient/caregiver. Emergency contact information was provided. Attending Participation: I personally performed the entire procedure. Procedure Code(s): --- Professional --- 97844, Colonoscopy, flexible; with endoscopic mucosal resection 55314, 59, Colonoscopy, flexible; with removal of tumor(s), polyp(s), or other lesion(s) by snare technique Diagnosis Code(s): --- Professional --- D12.0, Benign neoplasm of cecum D12.2, Benign neoplasm of ascending colon K63.5, Polyp of colon K57.30, Diverticulosis of large intestine without perforation or abscess without bleeding CPT copyright 2021 [employer]. All rights reserved. The codes documented in this report are preliminary and upon promotions officer review may be revised to meet current compliance requirements. Todd aSl MD 11/11/2024 12:48:04 PM Note Initiated On: 11/11/2024 11:26 AM Number of Addenda: [address] [address] [facility] 11/11/2024 11:2 6 AM J2EE APPLICATION DEVELOPER us Todd Sal MD GI PROCEDURE ORDERAB LES Edited Result - Final [facility] from Last 3 Months Insurance SELF PAY NO INSURANCE Member Subscriber Plan / Payer (Ef fective for All Dates) Name:aRdha Wilkins Member ID:Not on file Relation to Subscriber:Not on file Name:RADHA WILKINS Subscriber ID:Not on file (Home) Address: [address] [place] [id number] Payer ID:Not on file Group ID:Not on file Type:Self Pay Address: [facility] MANAGED MEDICARE ADV [place] [phone] Care Teams Inspector Welded Parts Relationship Specialty Start Date End Date Saleem Rios MD [address] [place] [id number] PCP - General Gastroenterology 11/11/24
== END 2025-01-11 09:54 | disposition home or self-care (01) ==
PROVIDERS: PCP Internal Medicine; Visit Provider Internal Medicine Pulmonary Disease
DX: R91.8 Other nonspecific abnormal finding of lung field (principal); R93.89 Abnormal findings on diagnostic imaging of other specified body structures
CPT/HCPCS: 71250

== ENCOUNTER 2025-03-30 13:44 | Outpatient (CLI) | payer MEDICARE, SELFPAY ==
--- OUTSIDE RECORDS SUMMARY | 2025-03-30 14:00 | XMS_ITS | Clinical Summary ---
Author Organization [facility] Address [address] [place] [address] Care Team Providers Care Coagulant Dipper Name Role Phone Saleem Rios MD Primary Care Provider [phone] Source Comments [facility],non-owned Affiliates and Associated Physician Practices is amultiple site organization consisting of ambulatory clinics and hospital sitesin [place], [place], [place] and [place]. This disclosure is being madepursuant to the Care Everywhere program and may not contain all information available regarding this patient. Last updated 18.[facility] Allergies No known active allergies Medications * Be aware that medications may not be up to date on this document. Alwaysverify current medications with the patient. cyanocobalamin (Vitamin B-12) 1000 MCG tablet Take 1 (one) tablet by mouth once daily Active Social History Tobacco Use Types Packs/Day Years [...] Comments Blood Pressure 154/101 11/11/2024 1:16 PM LAPPING MACHINE SET UP OPERATOR Pulse 67 11/11/2024 1:16 PM LAPPING MACHINE SET UP OPERATOR Temperature 36.2 C (97.2 F) 11/11/2024 12:46 PM LAPPING MACHINE SET UP OPERATOR Respiratory Rate 17 11/11/2024 1:16 PM LAPPING MACHINE SET UP OPERATOR Oxygen Saturation 96% 11/11/2024 1:16 PM LAPPING MACHINE SET UP OPERATOR Inhaled Oxygen Concentration - - Weight 111.6 kg (246 lb) 11/11/2024 11:15 AM LAPPING MACHINE SET UP OPERATOR Height 188 cm (6' 2) 11/11/2024 11:15 AM LAPPING MACHINE SET UP OPERATOR Body Mass Index 31.58 11/11/2024 11:15 AM LAPPING MACHINE SET UP OPERATOR Plan of Treatment Health Maintenance Due Date [...] VACCINE (1 - 2023-2 5 season) 2024 DEPRESSION SCREENING 09/14/2024 MEDICARE AWV CALENDAR YEAR 2024 INFLUENZA VACCINE (#1) 2025 Respiratory Syncytial Virus (RSV) Vaccine Pt: [...] Procedure Name Priority Date/Time Associated Diagnosis Comments ENDOSCOPY, COLON, DIAGNOSTIC Routine 11/11/2024 11:26 AM LAPPING MACHINE SET UP OPERATOR from Last 3 Months or Most Recently Relevant to Health Maintenance Results * Endoscopy, Colon, Diagnostic (11/11/2024 11:26 AM LAPPING MACHINE SET UP OPERATOR) Report Endoscopy POC Endoscopy Department Report _ [...] bowel preparation was evaluated using the BBPS ([place] Bowel Preparation Scale) with scores of: Right [...] as tolerated. - Hold any anticoagulant medications (blood thinners) for 2 days. Resume rest of home [...] entire procedure. Procedure Code(s): --- Professional --- 55023, Colonoscopy, flexible; with endoscopic mucosal resection 00824, 59, Colonoscopy, flexible; with removal of tumor(s), polyp(s), or other lesion(s) by snare technique Diagnosis Code(s): --- Professional --- D12.0, Benign neoplasm of cecum D12.2, Benign neoplasm of ascending colon K63.5, Polyp of colon K57.30, Diverticulosis of large intestine without perforation or abscess without bleeding CPT copyright 2021 [employer]. All rights reserved. The codes documented in this report are preliminary and upon investor relations coordinator review may be revised to meet current compliance requirements. Todd Sal MD 11/11/2024 12:48:04 PM Note Initiated On: 11/11/2024 11:26 AM Number of Addenda: [id number] [place] [address] PROVATION 11/11/2024 11:2 6 AM LAPPING MACHINE SET UP OPERATOR us Todd Sal MD GI PROCEDURE ORDERAB LES Edited Result - [facility] Last 3 Months or Most Recently Relevant to Health Maintenance Insurance SELF PAY NO INSURANCE Member Subscriber Plan / Payer (Ef fective for All Dates) Name:Radha Wilkins Member ID:Not on file Relation to Subscriber:Not on file Name:RADHA WILKINS Subscriber ID:Not on file (Home) Address: [address] [place] [address] Payer ID:Not on file Group ID:Not on file Type:Self Pay Address: [facility] MANAGED MEDICARE ADV Care Teams Coagulant Dipper Relationship Specialty Start Date End Date Saleem Rios MD [address] [place] [address] PCP - General Gastroenterology 11/11/24
--- NOTE | 2025-03-30 15:12 | WPDPFTINT ---
PFT Procedure Performed PFT Procedure Performed Spirometry with Pre/Post Bronchodilator Plethysmography (Lung Vol) Diffusing Cap (DLCO) Flow Vol Loop PFT Interpretation This is a pulmonary function test with pre and post-bronchodilator spirometry, plethysmography and diffusing capacity. The test was performed and results interpreted in accordance with the 2019 and 2005 ATS/ERS Task Force guidelines respectively using the Global Lung Function Initiative-2012 reference equations. Patient demonstrated good effort and cooperation. Reproducibility criteria were met. The quality of the pre bronchodilator spirometry maneuver was Grade B and post bronchodilator spirometry maneuver was Grade A. Findings: Spirometry: The contour the inspiratory and expiratory flow tracing are normal. The pre bronchodilator FVC is 5.08 L, 100% predicted. The pre bronchodilator FEV1 is 3.57 L, 93% predicted. The pre bronchodilator FEV1: FVC ratio 70%. The post bronchodilator FVC is 5.12 L, representing a 1% increase. The post bronchodilator FEV1 is 3.80 L, representing a 6% increase. The post bronchodilator FEV1: FVC ratio 74%. Plethysmography: The total lung capacity is 8.88 L, 114% predicted. The functional residual capacity is 3.81 L, 91% predicted. The residual volume is 3.79 L, 148% predicted. The residual volume: Total lung capacity ratio is 43%. Diffusing capacity: The diffusing capacity unadjusted for hemoglobin and carboxyhemoglobin is 28.8, 100% predicted. The diffusing capacity adjusted for alveolar volume is 3.73, 97% predicted. In comparison to previous pulmonary function testing on 10/13/2024, the post bronchodilator FVC is unchanged from 5.39 L to 5.12 L. The post bronchodilator FEV1 is unchanged from 4.00 L to 3.80 L. The total lung capacity is unchanged from 8.17 L to 8.88 L. The functional residual capacity is unchanged from 3.66 L to 3.81 L. The residual volume is increased from 2.82 L to 3.79 L. The residual volume: Total lung capacity ratio is increased from 35% to 43%. The diffusing capacity unadjusted for hemoglobin and carboxyhemoglobin is unchanged from 27.8 to 28.8. The diffusing capacity adjusted for alveolar volume is unchanged from 3.84 to 3.73. Impression: The spirometry is normal without evidence of an obstructive abnormality. There is no significant improvement after inhaling a single dose of albuterol. The increase in residual volume to total lung volume ratio is consistent with hyperinflation. The diffusing capacity is normal. In comparison to previous pulmonary function testing on 10/13/2024 there has been a greater than anticipated time dependent increase in the residual volume and the residual volume: Total lung capacity ratio. There has been no significant change in the FVC, FEV1, total lung capacity, functional residual capacity or diffusing capacity. Clinical correlation is recommended.
== END 2025-03-30 13:45 | disposition home or self-care (01) ==
PROVIDERS: PCP Internal Medicine; Visit Provider Internal Medicine Pulmonary Disease
DX: R91.8 Other nonspecific abnormal finding of lung field (principal)
CPT/HCPCS: 94060; 94726; 94729